=== PATIENT | female | born 1980 | race Caucasian/White ===

== ENCOUNTER → 2018-12-23 | Outpatient (CLI) | payer OTHER | END | disposition home or self-care (01) | LOC: RAD 14:52 | PROVIDERS: ATTEND Otolaryngology | DX: R07.0 Pain in throat (principal); R13.14 Dysphagia, pharyngoesophageal phase | CPT/HCPCS: 74220 ==

== ENCOUNTER 2019-10-20 06:43 | Emergency (ER) | payer OTHER ==
[~2019-10-20] VITALS: Ht 160 cm; Wt 79.5 kg
--- NOTE | 2019-10-20 06:59 | NUR ---
PATIENT BROUGHT BACK FROM TRIAGE WITH CHIEF COMPLAINT OF SORE THROAT, BODY ACHES, & FEVER 100.0 STARTING YESTERDAY. THE PATIENT DENIES CP, SOB, & N/V.
[2019-10-20] MEDS ORDERED: DEXAMETHASONE 4 MG/ML, 1ML ONE (07:21)
[2019-10-20] MEDS ORDERED: DEXAMETHASONE 4 MG/ML, 1ML PO ONE (07:30)
--- NOTE | 2019-10-20 08:07 | NUR ---
PATIENT RESTING IN BED, CALL LIGHT IN REACH.
[2019-10-20 08:12] LABS: RAPID INFLUENZA A Negative (Negative); RAPID INFLUENZA B Negative (Negative)
[2019-10-20 08:27] VITALS: BP 110/74
--- NOTE | 2019-10-20 08:59 | NUR ---
DISCHARGE INSTRUCTIONS REVIEWED.
== END 2019-10-20 09:01 | disposition home or self-care (01) ==
LOC: ED 07:25
DX: J02.8 Acute pharyngitis due to other specified organisms (principal); M79.10 Myalgia, unspecified site
CPT/HCPCS: 87081; 87147; 87400; 87880; 99283; J1100